=== PATIENT | female | born 1995 | race Caucasian/White ===

== ENCOUNTER 2017-06-15 12:38 | Emergency (ER) | payer OTHER ==
[2017-06-15] MEDS ORDERED: Marcaine 0.5% SDV 10 ML IJ ONE (13:23)
[2017-06-15] MEDS ORDERED: Sodium Chloride 0.9% 1000 ML 1,000 ML IV STA (13:25)
[2017-06-15] MEDS ORDERED: MOTRIN 600 MG PO ONE (13:26)
[2017-06-15] MEDS ORDERED: MOTRIN 600 MG ONE (13:27)
[2017-06-15] MEDS ORDERED: Marcaine 0.5% SDV 10 ML ONE (13:27)
[2017-06-15] MEDS ORDERED: Sodium Chloride 0.9% 1000 ML 1,000 ML ONE (13:28)
--- NOTE | 2017-06-15 13:50 | XRAY ---
Indication: Dog bite. Comparison: None 2 views of the right forearm demonstrates focal distal anterior ulnar soft tissue swelling/laceration presumed related to dog bite. No other bony, articular, or soft tissue abnormalities.
[2017-06-15 14:06] VITALS: BP 136/88; PULSE 88; O2SAT 100
--- NOTE | 2017-06-15 14:06 | ERPHSYRPT ---
- History of Present Illness Time Seen by Provider: 06/15/17 13:04 Source: patient, family Patient Subjective Stated Complaint: PT states "I was at the animal [facility] in the yard looking at a dog and he just jumped on me and nipped my arm." Triage Nursing Assessment: Pt alert and extremely anxious. pt able to speak in clear full sentences. Pt able to anbulate without difficulty, pt having slight carpal spasms. Physician History: CC: dog bite right arm Hx: 21 y/[address] patient of [address] Patel was visiting the [facility] to get a dog. The dog bit her on the right forearm. No other injuries. 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 The dog had rabies vaccine in February and is being held in quarantine for 10 days at the retirement. Pain moderately severe. No N/T/W. Occurred: just prior to arrival Extremities Pain Location: forearm: right Allergies/Adverse Reactions: gabapentin [From Neurontin] Allergy (Verified 06/17/16 23:38) naproxen Allergy (Verified 06/17/16 23:38) Home Medications: Duloxetine HCl [Duloxetine HCl] 30 mg PO DAILY 06/15/17 [History] Hx Tetanus, Diphtheria Vaccination/Date Given: Yes Hx Influenza Vaccination/Date Given: Yes Hx Pneumococcal Vaccination/Date Given: No Immunizations Up to Date: Yes - Review of Systems Constitutional: No Symptoms Musculoskeletal: Injury (right forearm), No Back Pain, No Neck Pain Neurological: No Focal Weakness, No Parasthesia - Past Medical History Pertinent Past Medical History: Yes Musculoskeletal History: Fibromyalgia Other Medical History: polyarthritis, insomnia - Past Surgical History Past Surgical History: No - Social History Smoking Status: Never smoker Exposure to second hand smoke: Yes Drug Use: none Patient Lives Alone: No - Female History Hx Last Menstrual Period: 06/05/2017 Hx Now: No - Nursing Vital Signs Nursing Vital Signs: Initial Vital Signs Temperature 98.1 F 06/15/17 12:51 Pulse Rate 112 H 06/15/17 12:51 Respiratory Rate 24 06/15/17 12:51 Blood Pressure 146/75 06/15/17 12:51 O2 Sat by Pulse Oximetry 100 06/15/17 12:51 Pain Scale Pain Intensity 0 - Physical Exam General Appearance: alert Neck Exam: supple Cardiovascular/Respiratory Exam: regular rate/rhythm Neuro/Tendon Exam: normal sensation, normal motor functions Mental Status Exam: alert, oriented x 3, cooperative Skin Exam: warm, dry SpO2: 100 Oxygen Delivery: Room Air Comments: 3cm gaping laceration right forearm. No FB. ROM intact. Normal tendon function and sensation. Procedures - Laceration/Wound Repair right forearm Wound Location: Right, lower arm Wound Length (cm): 3 Wound's Depth, Shape: flap, contused tissue Irrigated: Yes (1L NS) Hibiclens Prep: Yes Anesthesia: local, marcaine 0.5 Wound Repaired With: sutures Suture Size/Type: 4-0, prolene Number of Sutures: 2 - Course Nursing assessment & vital signs reviewed: Yes - Radiology Exams right forearm X-ray Interpretation: Teleradiologist Report, Negative Ordered Tests: Active Orders 24 hr Category Date Time Status Prepare for Sutures STAT Care 06/15/17 13:23 Active Sutures STAT Care 06/15/17 13:24 Active Wound Care STAT Care 06/15/17 13:23 Active FOREARM Stat Exams 06/15/17 13:24 Completed Medication Summary Generic Name Dose Route Start Last Admin Trade Name Freq PRN Reason Stop Dose Admin Sodium Chloride 1,000 mls @ 999 mls/hr 06/15/17 13:25 06/15/17 13:32 Sodium Chloride 0.9% 1000 Ml IV 06/15/17 14:25 999 mls/hr .Q1H1M STA Administration Discontinued Medications Generic Name Dose Route Start Last Admin Trade Name Freq PRN Reason Stop Dose Admin Bupivacaine HCl 5 ml 06/15/17 13:23 06/15/17 13:31 Marcaine 0.5% Sdv 10 Ml IJ 06/15/17 13:24 5 ml STAT ONE Administration Bupivacaine HCl Confirm 06/15/17 13:27 Marcaine 0.5% Sdv 10 Ml Administered 06/15/17 13:28 Dose 10 ml .ROUTE .STK-MED ONE Sodium Chloride Confirm 06/15/17 13:28 Sodium Chloride 0.9% 1000 Ml Administered 06/15/17 13:29 Dose 1,000 mls @ ud .ROUTE .STK-MED ONE Ibuprofen 600 mg 06/15/17 13:26 06/15/17 13:31 Motrin 600 Mg PO 06/15/17 13:27 600 mg STAT ONE Administration Ibuprofen Confirm 06/15/17 13:27 Motrin 600 Mg Administered 06/15/17 13:28 Dose 600 mg .ROUTE .STK-MED ONE - Progress Progress Note: 06/15/17 14:03 Dog bite and wound care instr given. Discussed risk of infection with patient prior to loose closure. Counseled pt/family regarding: diagnosis, need for follow-up, rad results - Departure Time of Disposition: 14:03 Departure Disposition: Home Clinical Impression: Dog bite of right forearm Qualifiers: Encounter type: initial encounter Qualified Code(s): S51.851A - Open bite of right forearm, initial encounter; W54.0XXA - Bitten by dog, initial encounter; W54.0XXA - Bitten by dog, initial encounter Laceration of right forearm Qualifiers: Encounter type: initial encounter Qualified Code(s): S51.811A - Laceration without foreign body of right forearm, initial encounter Condition: Stable Critical Care Time: No Referrals: IAM PATEL MD [Primary Care Provider] - Instructions: Animal Bites, Care for a Laceration After Repair Additional Instructions: LACERATION CARE 1. Do not use peroxide, merthiolate, alcohol, or betadine. 2. Keep wound clean and dry. 3. Change dressing if it becomes wet or soiled. 4. If you must work, wear protective covering. 5. You may return to the emergency department or see your family physician for suture removal. 6. See your family physician or return to the emergency department for any of the following signs or symptoms: A. Redness B. Swelling C. Discolored drainage D. Red streaks E. Elevated temperature F. Other signs of infection Rx augmentin. Ibuprofen as directed for discomfort. Suture removal in 10 days. Prescriptions: Amox Tr/Potass Clav. 875 mg [Augmentin 875-125 Tablet] 875 mg PO BID #10 tablet
== END 2017-06-15 14:24 | disposition home or self-care (01) ==
LOC: ED 12:38
PROC: 0HQDXZZ Repair Right Lower Arm Skin, External Approach (ICD-10-PCS; principal; 2017-06-15)
DX: S51.851A Open bite of right forearm, initial encounter (principal); W54.0XXA Bitten by dog, initial encounter; S51.811A Laceration without foreign body of right forearm, initial encounter
CPT/HCPCS: 12002; 73090; 99284; A9270-GY

== ENCOUNTER 2019-05-12 16:11 | Emergency (ER) | payer OTHER ==
--- NOTE | 2019-05-12 16:57 | ERPHSYRPT ---
- History of Present Illness Time Seen by Provider: 05/12/19 16:35 Source: patient Exam Limitations: no limitations Patient Subjective Stated Complaint: pt alert, walked in, resp easy, skin w/d/p , abd soft, pt is not wearing a pad, she states she is only blood when she wipes , Triage Nursing Assessment: pt here for passing a clot and spotting. lower abd cramping that she states is her normal cramping,she is 6 weeks , has apt with dayron on thursday Physician History: patient is 6 weeks . Has the vaginal bleeding 2 days ago. She came here because she was .passing a clot. patient has not seen an NEON TECHNICIAN yet. Dr. Patel's office told her to come to the ER. vision also complains of minimal suprapubic cramps. Timing/Duration: today Activites at Onset: none Quality: aching Onset Location: suprapubic Pain Radiation: none Severity of Pain-Max: mild Severity of Pain-Current: mild Prior abdominal problems: none Sexual intercourse history: less than 2 months ago Modifying Factors: Improves With: nothing Associated Symptoms: abdominal pain, , other (patient is on amoxicillin for a bilateral ear infection. Patient complains of some dizziness because of that.), No fever, No chills, No diaphoresis, No nausea, No vomiting, No dysuria , No nocturia, No polyuria, No urinary frequency, No loss of bladder control, No lower back pain, No lumps, No mass, No swelling, No syncope, No vaginal discharge, No vaginal fluid leakage Allergies/Adverse Reactions: gabapentin [From Neurontin] Allergy (Verified 05/12/19 16:54) latex Allergy (Verified 05/12/19 16:54) naproxen Allergy (Verified 05/12/19 16:54) Home Medications: Vits W-Ca,Fe,FA(<1Mg) [] 1 ea DAILY 05/12/19 [History] Hx Tetanus, Diphtheria Vaccination/Date Given: Yes Hx Influenza Vaccination/Date Given: No Hx Pneumococcal Vaccination/Date Given: No - Review of Systems Constitutional: No Fever, No Chills Eyes: No Symptoms Ears, Nose, & Throat: No Symptoms Respiratory: No Cough, No Dyspnea Cardiac: No Chest Pain, No Edema, No Syncope Abdominal/Gastrointestinal: No Abdominal Pain, No Nausea, No Vomiting, No Diarrhea Genitourinary Symptoms: Vaginal Bleeding, No Dysuria Musculoskeletal: No Back Pain, No Neck Pain Skin: No Rash Neurological: Dizziness, No Focal Weakness, No Sensory Changes Psychological: No Symptoms Endocrine: No Symptoms All Other Systems: Reviewed and Negative - Past Medical History Pertinent Past Medical History: Yes Musculoskeletal History: Fibromyalgia Other Medical History: ear infection 05/12/19 - Past Surgical History Past Surgical History: Yes Musculoskeletal: Orthopedic Surgery Other Surgical History: right knee - Social History Smoking Status: Never smoker Exposure to second hand smoke: No Drug Use: marijuana Patient Lives Alone: Yes - Female History Hx Last Menstrual Period: apr 01 Hx Now: Yes Expected Date of Delivery: 01/07/20 - Nursing Vital Signs Nursing Vital Signs: Initial Vital Signs Temperature 98.5 F 05/12/19 16:47 Pulse Rate 104 H 05/12/19 16:47 Respiratory Rate 16 05/12/19 16:47 Blood Pressure 121/68 05/12/19 16:47 O2 Sat by Pulse Oximetry 97 05/12/19 16:47 Pain Scale Pain Intensity 0 - Physical Exam General Appearance: no apparent distress, alert Eye Exam: PERRL/EOMI, eyes nml inspection Ears, Nose, Throat Exam: normal ENT inspection, TMs normal, pharynx normal, moist mucous membranes Neck Exam: normal inspection, non-tender, supple, full range of motion Respiratory Exam: normal breath sounds, lungs clear, No respiratory distress Cardiovascular Exam: regular rate/rhythm, normal heart sounds, normal peripheral pulses Gastrointestinal/Abdomen Exam: soft, No tenderness, No mass Pelvic Exam: other (Pt refused. She says she will go to Dr Patel and will get it done. No bleeding right now) Back Exam: normal inspection, normal range of motion, No CVA tenderness, No vertebral tenderness Extremity Exam: normal inspection, normal range of motion, pelvis stable Neurologic Exam: alert, oriented x 3, cooperative, civil engineering project designer II-XII nml as tested, normal mood/affect, sensation nml, No motor deficits Skin Exam: normal color, warm, dry Lymphatic Exam: No adenopathy SpO2: 97 - Course Nursing assessment & vital signs reviewed: Yes Ordered Tests: Active Orders 24 hr Category Date Time Status CBC W DIFF Stat Lab 05/12/19 18:45 Completed CMP Stat Lab 05/12/19 18:45 Completed CULTURE,URINE Stat Lab 05/12/19 18:30 Received HCG, Quantitative (Inhouse) Stat Lab 05/12/19 18:45 Completed HCG,QUALITATIVE URINE Stat Lab 05/12/19 18:30 Completed UA W/RFX UR CULTURE Stat Lab 05/12/19 18:30 Completed Lab/Rad Data: Laboratory Result [facility] 05/12/19 18:45 05/12/19 18:45 Laboratory Results 05/12/19 05/12/19 05/12/19 Range/Units 18:45 18:45 18:30 WBC 7.4 Corrected WBC (auto) RBC 4.52 Hgb 13.9 Hct 40.6 MCV 89.8 MCH 30.8 MCHC 34.2 RDW 12.3 Plt Count 237 MPV 11.3 H Gran % 59.7 Eos # (Auto) 0.06 Absolute Lymphs (auto) 2.43 Absolute Monos (auto) 0.48 Lymphocytes % 32.7 Monocytes % 6.5 Eosinophils % 0.8 Basophils % 0.3 Absolute Granulocytes 4.43 Basophils # 0.02 Sodium 142 (137-145) mmol/L Potassium 3.8 (3.5-5.1) mmol/L Chloride 107 (98-107) mmol/L Carbon Dioxide 25 (22-30) mmol/L Anion Gap 13.4 (5-15) MEQ/L BUN 10 (7-17) mg/dL Creatinine 0.52 (0.52-1.04) mg/dL Estimated GFR > 60.0 ML/MIN Glucose 89 (74-106) mg/dL Calcium 9.6 (8.4-10.2) mg/dL Total Bilirubin 0.40 (0.2-1.3) mg/dL AST 23 (14-36) U/L ALT 14 (0-35) U/L Alkaline Phosphatase 46 (38-126) U/L Serum Total Protein 7.8 (6.3-8.2) g/dL Albumin 4.5 (3.5-5.0) g/dL Beta HCG, Quant 575.48 mIU/ml Urine Color STRAW (YELLOW) Urine Appearance SLIGHTLY CLOUDY (CLEAR) Urine pH 6.0 (5-6) Ur Specific [place] 1.004 (1.005-1.025) Urine Protein NEGATIVE (Negative) Urine Ketones NEGATIVE (NEGATIVE) Urine Blood MODERATE (0-5) Mitul/ul Urine Nitrite NEGATIVE (NEGATIVE) Urine Bilirubin NEGATIVE (NEGATIVE) Urine Urobilinogen NEGATIVE (0-1) mg/dL Ur Leukocyte Esterase NEGATIVE (NEGATIVE) Urine WBC (Auto) 0-2 (0-5) /HPF Urine RBC (Auto) 3-5 (0-2) /HPF U Epithel Cells (Auto) FEW (FEW) /HPF Urine Bacteria (Auto) FEW (NEGATIVE) /HPF Urine Mucus (Auto) SLIGHT (NEGATIVE) /HPF Urine Culture Reflexed YES (NO) Urine Glucose NEGATIVE (NEGATIVE) mg/dL Urine HCG, Qual (Negative) Slides for Path Review 05/12/19 05/12/19 Range/Units 18:30 17:25 WBC Cancelled Corrected WBC (auto) Cancelled RBC Cancelled Hgb Cancelled Hct Cancelled MCV Cancelled MCH Cancelled MCHC Cancelled RDW Cancelled Plt Count Cancelled MPV Cancelled Gran % Cancelled Eos # (Auto) Cancelled Absolute Lymphs (auto) Cancelled Absolute Monos (auto) Cancelled Lymphocytes % Cancelled Monocytes % Cancelled Eosinophils % Cancelled Basophils % Cancelled Absolute Granulocytes Cancelled Basophils # Cancelled Sodium (137-145) mmol/L Potassium (3.5-5.1) mmol/L Chloride (98-107) mmol/L Carbon Dioxide (22-30) mmol/L Anion Gap (5-15) MEQ/L BUN (7-17) mg/dL Creatinine (0.52-1.04) mg/dL Estimated GFR ML/MIN Glucose (74-106) mg/dL Calcium (8.4-10.2) mg/dL Total Bilirubin (0.2-1.3) mg/dL AST (14-36) U/L ALT (0-35) U/L Alkaline Phosphatase (38-126) U/L Serum Total Protein (6.3-8.2) g/dL Albumin (3.5-5.0) g/dL Beta HCG, Quant mIU/ml Urine Color (YELLOW) Urine Appearance (CLEAR) Urine pH (5-6) Ur Specific [place] (1.005-1.025) Urine Protein (Negative) Urine Ketones (NEGATIVE) Urine Blood (0-5) Mitul/ul Urine Nitrite (NEGATIVE) Urine Bilirubin (NEGATIVE) Urine Urobilinogen (0-1) mg/dL Ur Leukocyte Esterase (NEGATIVE) Urine WBC (Auto) (0-5) /HPF Urine RBC (Auto) (0-2) /HPF U Epithel Cells (Auto) (FEW) /HPF Urine Bacteria (Auto) (NEGATIVE) /HPF Urine Mucus (Auto) (NEGATIVE) /HPF Urine Culture Reflexed (NO) Urine Glucose (NEGATIVE) mg/dL Urine HCG, Qual POSITIVE (Negative) Slides for Path Review Cancelled - Progress Progress: improved Air Movement: good Progress Note: 05/12/19 19:43 ppatient has an appointment to see NEON TECHNICIAN on Thursday. I told her to call her OB/ MID LEVEL DEVELOPER in the morning and to see the doctor as soon as possible. The patient's a beta hCG is only 575. Ultrasound will not detect any second pacer level. The patient does not have any active vaginal bleeding. Patient does not have any abdominal pain. The patient's hemoglobin is also normal. Blood Culture(s) Obtained: No Antibiotics given: No Counseled pt/family regarding: lab results, diagnosis, need for follow-up - Departure Departure Disposition: Home Clinical Impression: Vagina bleeding, Condition: Stable Critical Care Time: No Referrals: IAM PATEL MD [Primary Care Provider] -
[2019-05-12 18:16] VITALS: PULSE 78
[2019-05-12 19:00] LABS: Absolute Neutrophil Ct (ANC) 4.43 (1.4-6.9); BASOPHIL % 0.3 % (0.0-0.4); Basophil (Absolute #) 0.02 (0-0.4); Eosinophil % 0.8 % (0.00-5.0); Eosinophil (Absolute #) 0.06 (0-0.5); Hematocrit 40.6 % (35-47); Hemoglobin 13.9 gm/dl (12.0-16.0); Lymphocyte (Absolute #) 2.43 (1.0-4.6); Lymphocytes % 32.7 % (24.0-44.0); Mean Cell Volume 89.8 fl (78-100); Mean Corpuscular Hemoglobin 30.8 pg (26-32); Mean Corpuscular Hgb Concent. 34.2 g/dl (32-36); Mean Platelet Volume 11.3 fl (6-9.5); Monocyte (Absolute #) 0.48 (0.0-1.3); Monocytes % 6.5 % (0.0-12.0); Neutrophil % 59.7 % (36.0-66.0); Platelet Count 237 K/mm3 (150-450); Red Blood Count 4.52 M/mm3 (4.1-5.4); Red Cell Distribution Width 12.3 % (11.5-14.0); White Blood Count 7.4 K/mm3 (4.0-10.5)
[2019-05-12 19:10] LABS: Appearance SLIGHTLY CLOUDY (CLEAR); Bacteria FEW /HPF (NEGATIVE); Bilirubin NEGATIVE (NEGATIVE); Blood MODERATE Ery/ul (0-5); Epithelial Cells FEW /HPF (FEW); Glucose NEGATIVE (NEGATIVE); Ketones NEGATIVE (NEGATIVE); Leukocyte Esterase NEGATIVE (NEGATIVE); Mucus SLIGHT /HPF (NEGATIVE); Nitrite NEGATIVE (NEGATIVE); Protein,Urine Dip NEGATIVE (Negative); Specific Gravity 1.004 (1.005-1.025); Urobilinogen NEGATIVE mg/dL (0-1); WBC 0-2 /HPF (0-5)
[2019-05-12 19:35] LABS: ALBUMIN 4.5 g/dL (3.5-5.0); ALKALINE PHOSPHATASE 46 U/L (38-126); ANION GAP 13.4 MEQ/L (5-15); BLOOD UREA NITROGEN 10 mg/dL (7-17); CHLORIDE 107 mmol/L (98-107); Calcium 9.6 mg/dL (8.4-10.2); Carbon Dioxide 25 mmol/L (22-30); Creatinine 1 0.52 mg/dL (0.52-1.04); Glucose 89 mg/dL (74-106); HCG, Quantitative (Inhouse) 575.48 mIU/ml; Potassium 3.8 mmol/L (3.5-5.1); SGOT/AST 23 U/L (14-36); SGPT/ALT 14 U/L (0-35); SODIUM 142 mmol/L (137-145); Total Protein 7.8 g/dL (6.3-8.2)
[2019-05-12 19:59] VITALS: BP 107/44; O2SAT 98
== END 2019-05-12 19:59 | disposition home or self-care (01) ==
LOC: ED 16:11
DX: O20.9 Hemorrhage in early pregnancy, unspecified (principal)
CPT/HCPCS: 36415; 80053; 81001; 84702; 84703; 85025; 87077; 87086; 87186; 99283